=== PATIENT | male | born 1980 | race Caucasian/White ===

== ENCOUNTER 2020-09-30 12:54 | Emergency (ER) | payer OTHER, SELFPAY ==
[2020-09-30 13:05] VITALS: BP 120/83; PULSE 87; RESP 18; TEMP 36.7; O2SAT 99
--- NOTE | 2020-09-30 13:14 | W.ED.GENAD ---
Discharge Plan Disposition Patient Disposition: HOME Condition: Stable Discharge Details Clinical Impression: Nausea, vomiting and diarrhea Primary Care Provider: None,None ED Provider: Dali Hyatt Home Meds and New Rx's Prescriptions: New promethazine 25 mg tablet 25 mg PO TID PRN (Reason: nausea and vomiting) Qty: 7 RF: 0 Continued omeprazole 20 mg Capsule,Delayed Release(Dr/Ec) 20 mg PO BID RF: 0 nitroglycerin 0.4 mg Tablet, Sublingual 0.4 mg SUBLINGUAL Q5M PRNRF: 0 Discharge Instructions Instructions: Acute Nausea and Vomiting (ED), Acute Diarrhea (ED) Additional Instructions: Drink plenty of fluids and get plenty of rest. Your prescription has been sent electronically to your pharmacy. Call the pharmacy to make sure your prescription is ready before pickup. Take the prescription as directed. Follow-up with your primary care doctor in 1 week. Return to the emergency department with any worsening or new concerning symptoms such as fever, persistent vomiting or abdominal pain. Discharge Data Discharge Date/Time-TO BE ENTERED AT DEPARTURE: 09/30/20 19:10 Discharge Physician: Dali Hyatt Medical Decision Making 40-year-old male with a history of GERD on Prilosec and esophageal spasm on as needed sublingual nitro presents for vomiting and diarrhea since this morning. Recent travel from [place]. He is fully vaccinated. He ate [place] food before bed. He is retching and vomiting in the room upon my initial evaluation. He otherwise appears nontoxic. After Zofran ODT, able to reassess and he denies any complaint of nausea or abdominal pain. His abdomen is soft and nontender. Suspect most likely viral gastroenteritis or related to food. Do not see an indication for imaging as he is nontender and appears nontoxic. Will obtain screening labs, give Pepcid IV and additional IV fluids and reassess. Labs reviewed. White blood cell count 16 which is likely a stress response. Potassium 5.2 which was repleted on another analyzer with same result. Remainder of labs within normal limits. He has no complaint of chest pain and potassium only minimally elevated so do not see an indication for cardiac work-up. Will recheck potassium after finished IVF. 1720 --patient reassessed and states nausea is returning. Will give a dose of Phenergan and then attempt p.o. Patient reassessed and he feels much better and feels good to go home. Repeat potassium normalized to 4.3. Reassessment of abdomen is nontender and soft. He was able to take sips of water and no further vomiting. He was given Phenergan to go. Usual and customary return precautions given prior to discharge. Medical Records Medical records reviewed: Yes I reviewed the patient's medical records. Lab Data Lab results reviewed: Yes I reviewed the patient's lab results. Labs: Laboratory Tests Range/Units 09/30/20 09/30/20 09/30/20 13:25 13:25 16:43 WBC (4.4-10.8) 10^3/uL 16.67 H RBC (4.36-5.78) 10^6/uL 5.67 Hgb (13.5-17.5) g/dL 16.5 Hct (40.0-50.0) % 49.3 MCV (80-95) fL 86.9 MCH (27.0-33.0) pg 29.1 MCHC (32.0-36.0) % 33.5 RDW (11.8-14.1) % 12.1 Plt Count (130-400) 10^3/uL 228 MPV (8.0-11.0) fL 10.7 Immature Gran % 0.4 Neutrophils % 85.5 Lymphocytes % 6.9 Monocytes % 6.4 Eosinophils % 0.5 Basophils % 0.3 Nucleated RBC % % 0 Absolute Neutrophils (1.2-6.7) 10^3/uL 14.25 H Absolute Lymphocytes (1.2-3.4) 10^3/uL 1.15 L Absolute Monocytes (0.1-0.8) 10^3/uL 1.07 H Absolute Eosinophils (0.0-0.7) 10^3/uL 0.08 Absolute Basophils (0.0-0.2) 10^3/uL 0.05 Sodium (136-145) mmol/L 143 145 Potassium (3.5-5.1) mmol/L 5.2 H 4.3 Chloride (98-107) mmol/L 106 107 Carbon Dioxide (21.0-32.0) mmol/L 24.3 27.7 Anion Gap (3-11) mmol/L 12.7 H 10.3 BUN (7-18) mg/dL 20 H 18 Creatinine (0.70-1.30) mg/dL 1.2 1.1 Estimated GFR/1.73 m2 (mL/min/1.73m2) >= 60.00 >= 60.00 Glucose (74-106) mg/dL 117 H 100 Calcium (8.5-10.1) mg/dL 9.1 7.9 L Total Bilirubin (0.2-1.0) mg/dL 0.9 AST (15-37) U/L 21 ALT (16-63) U/L 41 Alkaline Phosphatase (46-116) U/L 77 Total Protein (6.4-8.2) g/dL 8.0 Albumin (3.4-5.0) g/dL 4.3 Lipase (73-393) U/L 96 HPI General Mode of arrival: ambulatory. Date/Time Provider Initiated Documentation: 09/30/20 12:56. Limitations to Documentation: no limitations. Information obtained by: patient. HPI Narrative: Patient is a 40-year-old male with a history of GERD and esophageal spasm who presents with vomiting and diarrhea since this morning. Patient states that he felt fine going to bed last night and then awoke this morning at 8 AM with nausea and began vomiting and diarrhea. He states he vomited approximately 15 times which is mainly been food and then clear. He states he has had multiple episodes of diarrhea which is mainly watery and brown. He denies any hematemesis or hematochezia. He admits to upper abdominal pain that occurs only just before vomiting and then completely resolved. He states he traveled here from [facility] 6 days ago but denies any known exposure to sick contacts. He states he ate [place] food that had been sitting out for a few hours last night which included chicken and beef before bed. He states no other family members ate this and states no one else is sick. He states he was supposed to travel to [facility] today but his plans fell through and he had to cancel his flight which he thinks may be causing him stress. He denies any fever, chest pain, difficulty breathing, urinary symptoms, recent antibiotics or other new medications. Related Data Home Medications Medication Instructions Recorded Confirmed nitroglycerin 0.4 mg SUBLINGUAL Q5M PRN 09/30/20 09/30/20 omeprazole 20 mg PO BID 09/30/20 09/30/20 promethazine 25 mg PO TID PRN #7 tab 09/30/20 Previous Rx's Medication Instructions Recorded promethazine 25 mg PO TID PRN #7 tab 09/30/20 Allergies Allergy/AdvReac Type Severity Reaction Status Date / Time No Known Allergies Allergy Unverified 09/30/20 13:08 General Stated Complaint: Nausea/Vomit/Diar RAQUEL: 3 Review of Systems All systems reviewed & are unremarkable except as noted in HPI and below Constitutional Constitutional: Reports as per HPI, Denies chills and Denies fever(s) Eyes Eyes: Denies blurry vision ENT Ears, Nose, Mouth, and Throat: Denies dizziness, Denies sore throat and Denies throat swelling Cardiovascular Cardiovascular: Denies chest pain and Denies dyspnea Respiratory Respiratory: Denies cough and Denies dyspnea Gastrointestinal Gastrointestinal: Denies abdominal pain, Reports diarrhea and Reports vomiting Genitourinary Genitourinary: Denies hematuria and Denies dysuria Musculoskeletal Musculoskeletal: Denies back pain and Denies numbness Integumentary/Breasts Skin/Breast: Denies lesions and Denies rash Neurologic Neurologic: Denies dizziness, Denies localized weakness and Denies numbness Allergic/Immunologic Allergic/Immunologic: Denies throat swelling [facility] Medical History (Updated 09/30/20 @ 18:56 by Dali Hyatt DO) Esophageal spasm GERD (gastroesophageal reflux disease) Surgical History (Updated 09/30/20 @ 14:09 by Dali Hyatt DO) History of hernia repair Social History Smoking/Tobacco Use Status: Never Smoking risk assessment performed?: Yes Alcohol Intake: current Alcohol Intake frequency: a few times a month Alcohol type: beer Drug use: Never Do you feel safe at home: Yes Exam Const General: cooperative, healthy appearing and no acute distress [facility] Head: normal to inspection Face and sinus: normal facial exam Eyes General: appearance normal, both eyes and all related structures EOM: EOM intact bilaterally Neck Neck: normal visual inspection and No submandibular swelling Lymphatic: no lymphadenopathy noted Chest Chest: normal inspection of the chest and no tenderness Resp Effort & Inspection: normal respiratory effort and able to speak in complete sentences Auscultation: clear to auscultation bilaterally Cardio Rate: regular rate Rhythm: regular rhythm GI Inspection: normal to inspection Palpation: soft, not firm, not rigid and nontender Auscultation: normal bowel sounds Back/Spine/Pelvis Pelvis: no pain with anterior-posterior compression Skin General skin exam: no rashes or lesions noted Neuro General: patient alert, patient awake and patient oriented x3 Cognition: normal cognition Speech: speech normal Motor: muscle tone normal throughout Sensory Exam: no sensory deficits noted Extrem General: normal to inspection, full ROM, capillary refill normal, no calf tenderness bilaterally and no edema Psych Appearance: grossly normal Mental Status: mental status grossly normal Speech and Movement: speech and movement normal Affect: normal affect Course Vital Signs Vital signs: Vital Signs Temperature 98.1 F 09/30/20 13:05 Pulse 87 09/30/20 13:05 Respiratory Rate 18 09/30/20 13:05 Blood Pressure 120/83 09/30/20 13:05 Pulse Oximetry 99 09/30/20 13:05 Temperature 98.1 F 09/30/20 13:05 Temperature Source Temporal Artery Scan 09/30/20 13:05 Pulse 87 09/30/20 13:05 Respiratory Rate 18 09/30/20 13:05 Blood Pressure 120/83 09/30/20 13:05 Blood Pressure Position Sitting 09/30/20 13:05 Pulse Oximetry 99 09/30/20 13:05 Oxygen Delivery Method Room Air 09/30/20 13:05 Oxygen Flow Rate 0 09/30/20 13:05 Pain Level 9 09/30/20 13:05
[2020-09-30] MEDS: Ondansetron O.D.T. 4 MG TABEF (13:25)
[2020-09-30] MEDS: Normal Saline 1,000 ML 1000 ML IV ×2 (13:25→14:36)
[2020-09-30 13:38] LABS: Abs Immature Grans 0.06 10^3/uL (0.0-0.06); Absolute Basophil Count 0.05 10^3/uL (0.0-0.2); Absolute Lymphocyte Count 1.15 10^3/uL (1.2-3.4); Absolute Monocyte Count 1.07 10^3/uL (0.1-0.8); Absolute Neutrophil Count 14.25 10^3/uL (1.2-6.7); Basophils % 0.3; Eosinophils % 0.5; HCT 49.3 % (40.0-50.0); HGB 16.5 g/dL (13.5-17.5); Immature Grans % 0.4; Lymphocytes % 6.9; MCH 29.1 pg (27.0-33.0); MCHC 33.5 % (32.0-36.0); MCV 86.9 fL (80-95); MPV 10.7 fL (8.0-11.0); Monocytes % 6.4; Neutrophils % 85.5; Nucleated RBC 0 %; Platelet Count 228 10^3/uL (130-400); RBC 5.67 10^6/uL (4.36-5.78); RDW 12.1 % (11.8-14.1); RDW-SD 38.5 fL; WBC 16.67 10^3/uL (4.4-10.8)
[2020-09-30 13:43] LABS: Absolute Eosinophil Count 0.08 10^3/uL (0.0-0.7)
[2020-09-30 13:54] LABS: ALT 41 U/L (16-63); AST 21 U/L (15-37); Albumin 4.3 g/dL (3.4-5.0); Alkaline Phosphatase 77 U/L (46-116); Anion Gap 12.7 mmol/L (3-11); BUN 20 mg/dL (7-18); Bilirubin, Total 0.9 mg/dL (0.2-1.0); CO2 24.3 mmol/L (21.0-32.0); CREATININE 1.2 mg/dL (0.70-1.30); Calcium 9.1 mg/dL (8.5-10.1); Chloride 106 mmol/L (98-107); Glucose 117 mg/dL (74-106); Lipase 96 U/L (73-393); Potassium 5.2 mmol/L (3.5-5.1); Sodium 143 mmol/L (136-145)
[2020-09-30] MEDS: FAMOTIDINE 20 MG/50 ML BAG 200 MG IVPB (14:13)
[2020-09-30] MEDS: Ondansetron 4 MG/2 ML VIAL IVP (16:04)
[2020-09-30 17:03] LABS: Anion Gap 10.3 mmol/L (3-11); BUN 18 mg/dL (7-18); CO2 27.7 mmol/L (21.0-32.0); CREATININE 1.1 mg/dL (0.70-1.30); Calcium 7.9 mg/dL (8.5-10.1); Chloride 107 mmol/L (98-107); Glucose 100 mg/dL (74-106); Potassium 4.3 mmol/L (3.5-5.1); Sodium 145 mmol/L (136-145)
[2020-09-30] MEDS: Sucralfate 1 GM TAB PO (17:54)
[2020-09-30 18:04] VITALS: BP 102/52; PULSE 78; RESP 18; TEMP 37.2; O2SAT 98
[2020-09-30 18:55] VITALS: BP 129/65; PULSE 90; RESP 18; TEMP 36.9; O2SAT 97
[2020-09-30 19:07] VITALS: BP 129/65; PULSE 90; RESP 18; TEMP 36.9; O2SAT 97
== END 2020-09-30 19:10 | disposition home or self-care (01) ==
PROVIDERS: Emergency Provider Physician Assistant
DX: R11.2 Nausea with vomiting, unspecified (principal); R19.7 Diarrhea, unspecified
CPT/HCPCS: 36415; 80048; 80053; 83690; 96361; 96365; 96367; 96375; 99284; 85025; J2405

== ENCOUNTER 2022-03-21 18:58 | Outpatient (CLI) | payer OTHER, SELFPAY ==
--- NOTE | 2022-03-21 19:30 | DI.RAD_ITS ---
Exam(s) XR CHEST 2V PA LATERAL EXAM: XR CHEST 2V PA LATERAL CLINICAL HISTORY: cough, r/o pneumonia TECHNIQUE: 2D digital imaging was performed. COMPARISON: No exams were available for comparison FINDINGS: MEDIASTINUM: Normal. HEART: Normal. PULMONARY VASCULATURE: Normal. LUNGS: Mild interstitial prominence, otherwise clear. PLEURAL SPACE: No pleural effusion or pneumothorax. BONE:Unremarkable for age. IMPRESSION: No acute abnormality. DATA REPOSITORY: RADIATION DOSE DELIVERED:
--- NOTE | 2022-03-21 19:45 | DI.VRAD_ITS ---
PROCEDURE INFORMATION: Exam: XR Chest Exam date and time: 03/21/2022 7:40 PM Age: 42 years old Clinical indication: Cough; Additional info: Cough, R/O pneumonia TECHNIQUE: Imaging protocol: Radiologic exam of the chest. Views: 2 views. COMPARISON: No relevant prior studies available. FINDINGS: Lungs: Chronic interstitial prominence. No consolidation. Pleural spaces: Unremarkable. No pleural effusion. No pneumothorax. Heart/Mediastinum: Unremarkable. No cardiomegaly. Bones/joints: Unremarkable. IMPRESSION: No acute findings. No radiographic evidence for pneumonia Dictated and Authenticated by: Zana Oconnell MD. Ordering:BERENICE Knapp MD
== END 2022-03-21 19:18 ==
PROVIDERS: Visit Provider Physician Assistant
DX: R05.8 Other specified cough (principal); J98.4 Other disorders of lung
CPT/HCPCS: 71046

== ENCOUNTER → 2022-11-20 11:41 | Outpatient (BNVA) | payer OTHER, SELFPAY | PROVIDERS: Visit Provider Student in an Organized Health Care Education/Training Program | DX: G56.22 Lesion of ulnar nerve, left upper limb (principal); M77.8 Other enthesopathies, not elsewhere classified | CPT/HCPCS: 99213 ==